=== PATIENT | male | born 1980 | race African-American/Black ===

== ENCOUNTER 2018-10-16 10:40 | Emergency (ER) | payer MEDICAID, OTHER ==
[~2018-10-16] VITALS: Ht 175.3 cm; Wt 85.0 kg
[2018-10-16] MEDS ORDERED: PIPERACILLIN/TAZ 3.375G PREMIX 50 ML IV SCH (13:00)
[2018-10-16] MEDS ORDERED: ONDANSETRON HCL 4MG/2ML INJ IV PRN (13:00)
[2018-10-16] MEDS ORDERED: ACETAMINOPHEN 325MG TABLET PO PRN (13:00)
[2018-10-16 14:03] LABS: BASOPHILS % 1.3 % (0.0-2.0); EOSINOPHILS % 2.7 % (0.0-5.0); HEMATOCRIT. 33.1 % (42.0-52.0); HEMOGLOBIN. 11.8 g/dL (14.0-18.0); LYMPHOCYTES % 27.4 % (20.0-50.0); MEAN CORPUSCULAR HEMOGLOBIN 28.3 pg (28.0-32.0); MEAN CORPUSCULAR VOLUME 79.7 fL (80.0-94.0); MEAN PLATELET VOLUME 7.9 fl (7.4-10.4); MONOCYTES % 9.3 % (2.0-8.0); NEUTROPHILS % 59.3 % (40.0-76.0); PLATELET 237 x1000/uL (130-400); RED BLOOD CELL COUNT 4.15 mill/uL (4.7-6.1); RED CELL DISTRIBUTION WIDTH 13.9 % (11.6-14.6)
[2018-10-16] MEDS: PIPERACILLIN/TAZ 3.375G PREMIX 50 ML IV NR (14:10)
[2018-10-16 15:14] LABS: PHOSPHORUS 6.2 mg/dL (2.5-4.9)
[2018-10-16] MEDS ORDERED: FUROSEMIDE 20MG TABLET PO NR (18:30)
[2018-10-16 20:56] VITALS: BP 128/65
[2018-10-17] MEDS ORDERED: BENAZEPRIL 10MG TABLET PO SCH (09:00)
== END 2018-10-16 23:00 | disposition short-term general hospital (02) ==
LOC: ER 10:40 → EDBEDREQ 12:14 → CANRESERV 12:33 → ENRESERV 12:33 → EDRESERV 12:33 → EDBEDREQSVC 14:47 → CANBEDREQ 16:41 → ENRESERV 20:43 → CANRESERV 20:43 → CANBEDREQ 22:20 → ER 23:00
DX: S90.911A Unspecified superficial injury of right ankle, initial encounter (principal); I12.0 Hypertensive chronic kidney disease with stage 5 chronic kidney disease or end stage renal disease; N18.6 End stage renal disease; E87.1 Hypo-osmolality and hyponatremia; F17.210 Nicotine dependence, cigarettes, uncomplicated; X58.XXXA Exposure to other specified factors, initial encounter; Y93.89 Activity, other specified; Y92.89 Other specified places as the place of occurrence of the external cause; Y99.8 Other external cause status
CPT/HCPCS: 36415; 73610; 80048; 80076; 84100; 85025; 96365; 99285; J2543

== ENCOUNTER 2019-04-16 17:29 | Emergency (ER) | payer MEDICARE, OTHER ==
[~2019-04-16] VITALS: Ht 175.3 cm; Wt 85.0 kg
[2019-04-16 19:44] VITALS: BP 172/106
== END 2019-04-16 22:45 | disposition left against medical advice (07) ==
LOC: ER 17:29
DX: Z53.21 Procedure and treatment not carried out due to patient leaving prior to being seen by health care provider (principal); Z99.2 Dependence on renal dialysis